=== PATIENT | male | born 1970 ===

== ENCOUNTER 2022-10-19 21:15 | Emergency (ER) | payer BC ==
[2022-10-19] MEDS ORDERED: GI Cocktail Oral Solution 30 ML PO ONE (21:51)
[2022-10-19 22:03] LABS: BASOPHILS ABSOLUTE AUTO 0.03 K/uL (0.02-0.10); BASOPHILS PERCENT AUTO 0.3 % (0.0-0.5); EOSINOPHILS ABSOLUTE AUTO 0.07 K/uL (0.04-0.40); EOSINOPHILS PERCENT AUTO 0.8 % (1.0-5.0); HEMATOCRIT 39.6 % (40.0-54.0); HEMOGLOBIN 13.6 g/dL (13.0-18.0); LYMPHOCYTES ABSOLUTE AUTO 1.82 K/uL (1.50-4.00); MEAN CORPUSCULAR HEMOGLOBIN 31.1 pg (27.0-32.0); MEAN CORPUSCULAR HGB CONC 34.3 g/dL (31.0-35.0); MEAN CORPUSCULAR VOLUME 91 fL (76-96); MONOCYTES ABSOLUTE AUTO 1.11 K/uL (0.20-0.80); MONOCYTES PERCENT AUTO 12.2 % (3.0-10.0); NEUTROPHILS ABSOLUTE AUTO 6.05 K/uL (2.00-7.50); NEUTROPHILS PERCENT AUTO 66.7 % (45.0-70.0); PLATELET COUNT,PLT 231 K/uL (150-400); RED BLOOD CELL COUNT 4.37 M/uL (4.50-6.50); RED CELL DISTRIBUTION WIDTH 14.3 % (11.0-16.0); WHITE BLOOD CELL COUNT,WBC 9.1 K/uL (4.0-11.0)
[2022-10-19] MEDS: Nitroglycerin 0.4 MG Tab.SL SL PRN ×3 (22:09→22:30)
[2022-10-19 22:21] LABS: ALANINE AMINOTRANSFERASE,ALT 48 U/L (12-78); ALBUMIN 3.7 g/dL (3.4-5.0); ALKALINE PHOSPHATASE 83 U/L (46-116); ANION GAP 12.5 mmol/L (5.0-15.0); ASPARTATE AMNIOTRANSFERASE,AST 25 U/L (15-37); BILIRUBIN TOTAL 0.6 mg/dL (0.0-1.0); BLOOD UREA NITROGEN,BUN 15 mg/dL (8-26); BUN/CREATININE RATIO 16.3 (6-25); CALCIUM 8.7 mg/dL (8.5-10.1); CARBON DIOXIDE,CO2 24.1 mmol/L (21.0-32.0); CHLORIDE,CL 103 mmol/L (98-107); CREATININE 0.92 mg/dL (0.70-1.30); ESTIMATED GFR 100 mL/min (>60); GLUCOSE RANDOM 114 mg/dL (74-100); MAGNESIUM 1.6 mg/dL (1.8-2.4); POTASSIUM,K 3.6 mmol/L (3.5-5.1); PROTEIN TOTAL,TP 7.3 g/dL (6.4-8.2); SODIUM,NA 136 mmol/L (136-145); TROPONIN I HIGH SENSITIVITY 4.9 pg/ml (<=60.4)
[2022-10-19] MEDS ORDERED: Nitroglycerin/D5W 25 MG/250 ML BOTTLE IV SCH (22:45)
[2022-10-19 22:58] LABS: INR 2.2 (1.0-3.5); PROTHROMBIN TIME 21.8 sec (9.0-11.5)
== END 2022-10-19 22:45 | disposition home or self-care (01) ==
LOC: LB.ED 21:15
DX: I24.9 Acute ischemic heart disease, unspecified (principal); Z79.01 Long term (current) use of anticoagulants; Z79.02 Long term (current) use of antithrombotics/antiplatelets
CPT/HCPCS: 36415; 71046; 80053; 83735; 84484; 85025; 85610; 93005; 99285; A9270